=== PATIENT | male | born 1970 | race Caucasian/White ===

== ENCOUNTER 2018-11-14 14:52 | Emergency (ER) | payer MEDICAID ==
--- NOTE | 2018-11-14 15:12 | Emergency Department Record ---
History of Present Illness - General Chief Complaint: Fall Injury Stated Complaint: FALL Time Seen by Provider: 11/14/18 15:04 Source: Patient Mode of Arrival: Ambulatory Limitations: No limitations - History of Present Illness Initial Comments: The patient is here due to L hip pain. He was walking on the street and fell into a sumit drain and injured his L hip. He has been able to walk on it. The patient denies any back pain, head injury, neck pain, rib pain or any AP. He has a hx of alcohol abuse and has had 3 beers today. MD Complaint: Fall Onset/Timin -: Minutes(s) Fall From: Other When Fall Occurred: Just prior to arrival Fall Witnessed: No Place Fall Occurred: Street Loss of Consciousness: None Prolonged Down Time?: No Symptoms Prior to Fall: None Severity: Mild Severity scale (1-10): 4 Quality: Aching Context: Tripped/slipped Associated Symptoms: Denies - Related Data Home Medications Medication Instructions Recorded Confirmed Last Taken Budesonide/Formoterol Fumarate 10.2 gm IH DAILY 11/14/18 11/14/18 Unknown [Symbicort 160-4.5 Mcg Inhaler] Allergies Allergy/AdvReac Type Severity Reaction Status Date / Time aspirin Allergy ABDOMINAL Verified 11/14/18 15:03 PAIN Travel Screening - Travel/Exposure Within Last 30 Days Have you traveled within the last 30 days?: No Review of Systems Constitutional: Denies: Chills, Fever Eyes: Denies: Eye discharge ENT: Denies: Congestion Respiratory: Denies: Cough, Dyspnea Past Medical History - SOCIAL HISTORY Smoking Status: Current every day smoker Alcohol Use: Heavy Drug Use Detail:: Marijuana - RESPIRATORY Hx Respiratory Disorders: Yes Hx COPD: Yes - CARDIOVASCULAR Hx Cardio Disorders: No - NEURO Hx Neuro Disorders: No - GI Hx GI Disorders: Yes Hx Reflux: Yes - Hx Genitourinary Disorders: No - ENDOCRINE Hx Endocrine Disorders: No - MUSCULOSKELETAL Hx Musculoskeletal Disorders: No - PSYCH Hx Psych Problems: No - HEMATOLOGY/ONCOLOGY Hx Hematology/Oncology Disorders: No Family Medical History Any Significant Family History?: No Physical Exam - General General Appearance: Alert, Oriented x3, Cooperative, No acute distress (The patient is walking without ataxia and speaking normally with no slurring. ) - Head Head exam: Atraumatic, Normocephalic, Normal inspection - Eye Eye exam: Normal appearance, PERRL - Neck Neck exam: Normal inspection, Full ROM. negative: Tenderness - Respiratory Respiratory exam: Normal lung sounds bilaterally. negative: Chest wall tenderness, Respiratory distress - Cardiovascular Cardiovascular Exam: Regular rate, Normal rhythm, Normal heart sounds - GI/Abdominal GI/Abdominal exam: Soft, Normal bowel sounds. negative: Tenderness - Extremities Extremities exam: Full ROM, Tenderness (There is a very faint bruise to the L lateral hip area with mild tenderness. There is normal ROM of the hip and the patient is ambulating normally on it.), Other (There is a mild abrasion to the lateral mid lower leg but no bony tenderness.). negative: Normal inspection - Back Back exam: Reports: Normal inspection, Full ROM. Denies: Muscle spasm, Rash noted, Tenderness, Vertebral tenderness - Neurological Neurological exam: Alert, Normal gait, Oriented X3. negative: Abnormal gait, Altered, Motor sensory deficit Course Vital Signs 11/14/18 14:56 Temperature 98.3 F Pulse Rate 71 Respiratory 20 Rate Blood Pressure 123/84 Pulse Ox 100 - Reevaluation(s) Reevaluation #1: The patient is ambulating normally with a steady gait. His speech is clear and he denies any new pain or discomfort. I explained to him that his xrays were neg and he is to see a family doctor next week for recheck. 11/14/18 16:25 Medical Decision Making - Data Complexity MDM Data: X-Ray Ordered and/or Reviewed - Radiology Data Radiology results: Report reviewed (L hip: Neg) Disposition Disposition: Discharge Clinical Impression: Contusion of hip, left Qualifiers: Encounter type: initial encounter Qualified Code(s): S70.02XA - Contusion of left hip, initial encounter Disposition: Home, Self-Care Condition: (2) Stable Instructions: Hip Contusion (ED) Additional Instructions: Please use Tylenol or Motrin for pain and please see your family doctor if not better next week. Return to the ER for any worsening symptoms. Forms: Patient Portal Access Time of Disposition: 16:37 Quality - Quality Measures Quality Measures: N/A - Blood Pressure Screening View Details: Yes Does Patient Have Any of the Following: No Blood Pressure Classification: Pre-Hypertensive BP Reading Systolic Measurement: 123 Diastolic Measurement: 84 Screening for High Blood Pressure: < Pre-Hypertensive BP, F/U Documented > [[id number]] Pre-Hypertensive Follow-up Interventions: Referral to alternative/primary care provider.
[2018-11-14] MEDS ORDERED: ACETAMINOPHEN 325 MG TAB PO ONE (16:26)
--- NOTE | 2018-11-15 15:05 | RADIOLOGY REPORT ---
EXAM: LEFT FEMUR HISTORY: INJURY, FELL INTO MANHOLE ON [place] WITH LEFT HIP PAIN. TECHNIQUE: AP and lateral views of the left femur were obtained. Comparison: None. Encounter: Initial. FINDINGS: No definite fracture of the left femur identified. Mild vascular calcification posteriorly in the thigh. 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 IMPRESSION: NO DEFINITE FRACTURE OF THE LEFT FEMUR IDENTIFIED. JOB NUMBER: [id number] MTDD
== END 2018-11-14 16:43 | disposition home or self-care (01) ==
LOC: ER 14:52
DX: S70.02XA Contusion of left hip, initial encounter (principal); F17.210 Nicotine dependence, cigarettes, uncomplicated; W01.198A Fall on same level from slipping, tripping and stumbling with subsequent striking against other object, initial encounter; Y93.01 Activity, walking, marching and hiking; Y92.410 Unspecified street and highway as the place of occurrence of the external cause
CPT/HCPCS: 99283